=== PATIENT | male | born 1945 ===

== ENCOUNTER 2022-11-23 06:26 | Observation (INO) ==
[~2022-11-23 06:26] MED LIST: Buffered Lidocaine 1% SYRIN 1 ml INTRADERM ONE; Lactated Ringers 1000 ml BAG 1,000 ML IV SCH
[2022-11-23] MEDS ORDERED: ceFAZolin 2 GM in NS PREMIX 2 GM/100 ML BAG IVPB ONE (06:53)
[2022-11-23 07:34] LABS: Rapid COVID-19 Molecular Undetected (Undetected)
[2022-11-23] MEDS ORDERED: Midazolam 2 mg/2 ml VIAL 1 mg/ml 2 ml VIAL (2 mg) ONE ×2 (07:45→09:22)
[2022-11-23] MEDS ORDERED: Lidocaine 2% PF 5 ML VIAL ONE (07:47)
[2022-11-23] MEDS ORDERED: Propofol 10 MG/ML 20 ML BTL ONE (07:47)
[2022-11-23] MEDS ORDERED: Ketamine HCL 50 mg/ml 10 ml VIAL (500 MG) ONE (07:59)
[2022-11-23] MEDS ORDERED: ROPIVACAINE 5 MG/ML 30 ML BTL (0.5%) ONE ×2 (08:01→09:11)
[2022-11-23] MEDS ORDERED: Lidocaine 1% MPF 5 ML VIAL ONE (08:01)
[2022-11-23] MEDS ORDERED: Naloxone 0.4 mg VIAL 0.4 mg/ml 1 ml VIAL IV PRN (08:34)
[2022-11-23] MEDS ORDERED: HYDROmorphone 1 MG/1 ML SYRINGE IV PRN (08:34)
[2022-11-23] MEDS ORDERED: Glycopyrrolate IV 0.2 MG/ML 1 ML VIAL ONE ×2 (09:40→11:20)
[2022-11-23] MEDS ORDERED: Ondansetron ODT 4 mg TAB 4 MG TAB PO PRN (10:09)
[2022-11-23] MEDS ORDERED: Ondansetron 4 mg VIAL 2 MG/ML 2 ml VIAL IV PRN (10:09)
[2022-11-23] MEDS ORDERED: Lactulose 30 ml UDC PO PRN (10:09)
[2022-11-23] MEDS ORDERED: Morphine 2 MG/ML SYRINGE IV PRN (10:09)
[2022-11-23] MEDS ORDERED: Magnesium Hydroxide LIQ 30 ML UDC PO PRN (10:09)
[2022-11-23] MEDS ORDERED: ceFAZolin 1 GM ADVAN 1 GM in NS 0.9% 50 ML 50 ML IVPB SCH (11:00)
[2022-11-23] MEDS ORDERED: Ondansetron 4 mg VIAL 2 MG/ML 2 ml VIAL ONE (11:20)
[2022-11-23] MEDS: Lactated Ringers 1000 ml BAG 1,000 ML IV SCH ×2 (13:08→23:07)
[2022-11-23] MEDS: ceFAZolin 1 GM ADVAN 1 GM in NS 0.9% 50 ML 50 ML IVPB SCH (17:10)
[2022-11-23] MEDS: Magnesium Hydroxide LIQ 30 ML UDC PO SCH (20:42)
[2022-11-24] MEDS: ceFAZolin 1 GM ADVAN 1 GM in NS 0.9% 50 ML 50 ML IVPB SCH ×2 (01:26→08:57)
[2022-11-24 03:47] LABS: Urine Amorphous Crystals Present (Absent); Urine Appearance Cloudy; Urine Bacteria 1+ (Absent); Urine Bilirubin Negative (Negative); Urine Blood 2+ (Negative); Urine Glucose Negative (Negative); Urine Ketones Negative (Negative); Urine Nitrite Negative (Negative); Urine Protein 2+(100 mg/dL) (Negative); Urine Red Blood Cell 3+(>10/hpf) (Absent); Urine Specific Gravity 1.008 (1.002-1.030); Urine Squamous Epithelial Cell Present (Absent); Urine Urobilinogen Negative (Negative); Urine White Blood Cell Trace(0-5/hpf) (Absent); Urine Yeast Present (Absent)
[2022-11-24 03:48] LABS: Urine Color Red
[2022-11-24 05:58] LABS: Hematocrit 31.4 % (38-53); Hemoglobin 11.1 g/dL (13.2-16.3); Mean Platelet Volume 8.2 fL (7.5-11.2); Platelet Count 145 10^3/uL (150-450)
[2022-11-24 06:09] LABS: Calcium 8.5 mg/dL (8.6-10.3); Creatinine, Serum 0.87 mg/dL (0.67-1.17); Potassium 4.2 mmol/L (3.5-5.0)
[2022-11-24] MEDS: Magnesium Hydroxide LIQ 30 ML UDC PO SCH (08:59)
[2022-11-24] MEDS ORDERED: Vitamin THERAPEUTIC TAB PO SCH (09:00)
[2022-11-24 09:58] VITALS: BP 112/66
== END 2022-11-24 14:26 | disposition home or self-care (01) ==
LOC: OR 06:26 → SSU 06:26
PROVIDERS: ADMIT Orthopaedic Surgery Adult Reconstructive Orthopaedic Surgery; ATTEND Orthopaedic Surgery Adult Reconstructive Orthopaedic Surgery